=== PATIENT | female | born 1965 | race Caucasian/White ===

== ENCOUNTER 2016-06-23 19:20 | Inpatient (IN) | payer BC ==
[~2016-06-23] VITALS: Ht 160 cm; Wt 66.1 kg
[~2016-06-23 19:20] MED LIST: CHOL100027 PO; CYCL10TA6 PO; IBUP-103 PO; PANT40TA PO; PRED10TA PO; VITA1TAB4 PO; VITACAP26 PO
[2016-06-23] MEDS ORDERED: ONDANSETRON INJ 2 MG/ML 2 ML VIAL IV STA (19:42)
[2016-06-23] MEDS ORDERED: SODIUM CHLORIDE 0.9% 1000ML 1,000 ML IV STA ×2 (19:42)
[2016-06-23] MEDS ORDERED: MoRPHine SULFATE 10 MG/ML CARP/VIAL IV STA ×2 (19:42→20:21)
[2016-06-23] MEDS ORDERED: FAMOTIDINE 20MG/102 ML D5W IV STA (19:42)
[2016-06-23] MEDS ORDERED: MoRPHine SULFATE 4 MG/ML 1 ML CARP\\VIAL IV PRN (19:45)
--- NOTE | 2016-06-23 20:27 | DIAGNOSTIC IMAGING REPORT ---
CHEST ONE VIEW PORTABLE CLINICAL HISTORY: EPIGASTRIC PAIN NAUSEA COMPARISON STUDY: 08/04/2008 FINDINGS: The cardiac and mediastinal contours are normal. There is no evidence of focal pulmonary consolidation. There is no evidence of failure. No pleural effusions are visualized.[ No free air is visualized. IMPRESSION: No active disease in the chest. Electronically signed by: Az Florence M.D. 06/23/2016 8:26 PM Dictated Date/Time: 06/23/2016 8:25 PM
[2016-06-23] MEDS ORDERED: DIPH-437 PO (20:44)
[2016-06-23] MEDS ORDERED: HYDR-4313 PO (20:45)
[2016-06-23 21:44] LABS: URINE APPEARANCE CLEAR (CLEAR); URINE BILIRUBIN NEG (NEG); URINE COLOR YELLOW; URINE EPITHELIAL CELL AUTO 20-30 /lpf (0-5); URINE NITRITE NEG (NEG); URINE PH 8.5 (4.5-7.5); URINE SPECIFIC GRAVITY 1.007 (1.000-1.030); UROBILINOGEN NEG (NEG)
[2016-06-23 21:47] LABS: MANUAL MICROSCOPIC REQUIRED? NO; REVIEW REQ? NO
[2016-06-23 21:53] LABS: BASO % 0.1 %; BASO ABS # 0.01 K/uL (0-0.2); COMPLETE YES; EOS % 0.9 %; HEMATOCRIT 36.8 % (37-47); IG% 0.1 %; LYMPH % 15.9 %; LYMPH ABS # 1.39 K/uL (1.2-3.4); MEAN CELL VOLUME 89.5 fL (80-100); MEAN CORPUSCULAR HEMOGLOBIN 30.9 pg (25-34); MEAN CORPUSCULAR HGB CONC 34.5 g/dl (32-36); MEAN PLATELET VOLUME 10.4 fL (7.4-10.4); MONO % 9.7 %; NEUT % 73.3 %; PLATELET COUNT 257 K/uL (130-400); RED BLOOD COUNT 4.11 M/uL (4.2-5.4); WHITE BLOOD COUNT 8.76 K/uL (4.8-10.8)
[2016-06-23 21:59] LABS: PREG INTERNAL NEGATIVE QC NEG CLEAR BACKGROUND; PREG INTERNAL POSITIVE QC POS CONTROL LINE
[2016-06-23 22:00] LABS: ALT/SGPT 21 U/L (12-78); BLOOD UREA NITROGEN 11 mg/dl (7-18); BUN/CREATININE RATIO 16.9 (10-20); CALCIUM 8.5 mg/dl (8.5-10.1); CARBON DIOXIDE 19 mmol/L (21-32); CHLORIDE 113 mmol/L (98-107); CREATININE 0.62 mg/dl (0.60-1.20); GLUCOSE 99 mg/dl (70-99); PARTIAL THROMBOPLASTIN RATIO 1.1; POTASSIUM 3.7 mmol/L (3.5-5.1); PROTHROMBIN TIME (PATIENT) 10.7 SECONDS (9.0-12.0); SODIUM 142 mmol/L (136-145)
[2016-06-23] MEDS ORDERED: PANTOprazole INJ 40 MG in SYRINGE 0 ML IV ONE (22:00)
[2016-06-23 22:02] LABS: ALKALINE PHOSPHATASE 59 U/L (45-117); AST/SGOT 16 U/L (15-37)
[2016-06-23] MEDS ORDERED: HYDROmorphone INJ 1 MG/ML SYR IV STA (22:10)
[2016-06-23] MEDS ORDERED: OPTIRAY 320 IV PRN (22:15)
--- NOTE | 2016-06-23 23:08 | DIAGNOSTIC IMAGING REPORT ---
CT ABD/PELVIS IV CONTRAST ONLY CLINICAL HISTORY: Generalized abdominal pain COMPARISON STUDY: 10/23/2014 TECHNIQUE: Following the IV administration of 116 mL of Optiray-320, CT scan of the abdomen and pelvis was performed from the lung bases to the proximal femurs. Images are reviewed in the axial, sagittal, and coronal planes. IV contrast was administered without complication. CT DOSE: 260.40 mGy.cm FINDINGS: Lower chest: The heart is normal in size and configuration, without pericardial effusion. The lung bases and pleural spaces are clear. Liver: There is a stable 7 mm cyst within the lateral segment left hepatic lobe. Gallbladder: Unremarkable. Spleen: Normal in size and attenuation. Pancreas: Unremarkable. Adrenal glands: Unremarkable. Kidneys: There is symmetric renal cortical enhancement. The kidneys are normal in size without hydronephrosis. Bowel: There are no transition zones indicate bowel obstruction. There is nonspecific gastric wall thickening.. There is no evidence of acute diverticulitis. The appendix appears normal. Peritoneum: There is no intraperitoneal free air or abdominal ascites. Vasculature: The abdominal aorta is normal in course and caliber. Adenopathy: None. Pelvic viscera: The bladder, and pelvic viscera are unremarkable. Skeletal structures: No destructive osseous lesions are seen. IMPRESSION: 1. No evidence of bowel obstruction. No evidence of free air 2. Nonspecific gastric antral wall thickening 3. Normal appendix 4. No evidence of acute diverticulitis Electronically signed by: Az Florence M.D. 06/23/2016 11:07 PM Dictated Date/Time: 06/23/2016 11:01 PM
[2016-06-23] MEDS ORDERED: ALUMINUM/MAGNESIUM SUSP 30 ML UDC PO STA (23:13)
[2016-06-23] MEDS ORDERED: LIDOCAINE HCL 2% VISC SOLN 20 ML UDC PO STA (23:13)
--- NOTE | 2016-06-23 23:23 | EMERGENCY ROOM VISIT NOTE ---
History First contact with patient: 19:30 Chief Complaint: ABDOMINAL PAIN Stated Complaint: SEVERE STOMACH PAIN,NAUSEA History of Present Illness Patient is a 56-year-old white female who presents emergency department for evaluation of epigastric abdominal pain with associated nausea and vomiting 18 hours. Patient reports a history of peptic ulcer disease for which she was previously treated with Protonix. She discontinued this medication some time ago after insurance declined to cover it. Patient states that she developed sharp epigastric pain around 2 AM that woke her from sleep. She states it radiates through to her back. Initially she described it as feeling like someone was bringing her stomach like a washcloth. He later became more like "contractions." She reports associated nausea and vomited about half a dozen times throughout the day, her last was just prior to arrival. She did not take any medications due to the vomiting. She presently rates her pain 8/10. She denies noting any melena, hematochezia or hematemesis. Bowel movements have been loose of late. She tried sipping on 7-Up and some oral fluids. She notes slight radiation of the pain up into the midsternal area, only with the severe cramping. She denies any palpitations or shortness of breath. She has been using ibuprofen fairly regularly since March for a back injury. She is taking 600 mg 2-3 times per day as needed. She does report a history of EGD which diagnosed the ulcer disease previously. She admits to occasional alcohol consumption. She last had wine 2 days ago. She reports a diarrheal illness a couple of weeks ago which she treated with Imodium and Pepto-Bismol. Review of Systems Review of systems as per HPI. All other systems reviewed were negative. 10 systems reviewed. Past Medical/Surgical History Medical Problems: (1) Abdominal pain (2) Abdominal pain (3) Abdominal pain (4) Acute upper GI bleed (5) Fall due to slipping on ice or snow (6) Gastritis (7) HTN (hypertension) (8) Hx of ulcer disease (9) Hx of ulcer disease (10) Intractable abdominal pain (11) Left lumbar radiculopathy (12) Lumbar strain (13) PUD (peptic ulcer disease) (14) Stomach ulcer Surgical Problems: (1) H/O esophagogastroduodenoscopy (2) Hx of ovarian cystectomy (3) Hx of removal of thyroglossal duct cyst (4) S/P tonsillectomy and adenoidectomy (5) S/P unilateral salpingo-oophorectomy Electronic medical records are reviewed and summarized as above/below. See Problem List. Family History Hypertension Social History Smoking Status: Former Smoker Alcohol Use: none Drug Use: none Marital Status: Housing Status: lives with family Occupation Status: employed Current/Historical Medications Scheduled Acetaminophen/Diphenhydramine (Tylenol Pm), 1 TAB PO HS Scheduled PRN Acetaminophen/Hydrocodone (Hydrocodone/Acetaminophen 5-325 mg), 1 TAB PO BID PRN for Pain Ibuprofen Tab (Advil), 600 MG PO BID PRN for Pain Allergies Coded Allergies: No Known Allergies (Verified , 06/23/16) Physical Exam Vital Signs Date Time Temp Pulse Resp B/P Pulse Ox O2 Delivery O2 Flow Rate FiO2 06/23/16 21:46 69 17 129/75 98 Room Air 06/23/16 20:34 71 06/23/16 19:27 36.7 90 20 146/98 94 Room Air Physical Exam CONSTITUTIONAL: Patient is uncomfortable appearing 50-year-old white female who was awake and alert and in moderate distress due to her abdominal pain. EYES: Pupils equal, round, reactive to light and accommodation. EOMs intact without nystagmus. Sclera are anicteric. ENT: Tympanic membranes intact, with normal landmarks. External canals are clear. Oral and nasopharynx are clear. Mucous membranes are moist, no lesions , tongue and gums appear normal. NECK: No bruits auscultated. Supple without lymphadenopathy. No thyromegaly. No meningeal signs. Full active range of motion without discomfort. CARDIOVASCULAR: Regular rate and rhythm, with normal S1 and S2, no murmur or gallop or rub is heard. No carotid bruits auscultated. No JVD. Peripheral pulses easy to palpable. RESPIRATORY: Breath sounds equal and clear to auscultation without wheezes, rales, or rhonchi heard. Full and equal chest expansion without accessory muscle use or retractions. GI: Bowel sounds are present. Abdomen is soft and tender in the epigastric and the left upper quadrant with voluntary guarding. No organomegaly. She does not have significant discomfort in the right upper quadrant. MUSCULOSKELETAL: Full range of motion of extremities x 4 with good strength. No cyanosis, edema, joint tenderness or swelling. No deformity. INTEGUMENTARY: No lesions or rash, normal skin turgor. NEUROLOGICAL: Alert, oriented, and cooperative. Cranial nerves, sensation and strength grossly intact. Pupils round, equal, and react to light, EOMs are full. LYMPH: No lymphadenopathy. Medical Decision & Procedures ER Provider Diagnostic Interpretation: CHEST ONE VIEW PORTABLE CLINICAL HISTORY: EPIGASTRIC PAIN NAUSEA COMPARISON STUDY: 08/04/2008 FINDINGS: The cardiac and mediastinal contours are normal. There is no evidence of focal pulmonary consolidation. There is no evidence of failure. No pleural effusions are visualized.[ No free air is visualized. IMPRESSION: No active disease in the chest. CT ABD/PELVIS IV CONTRAST ONLY CLINICAL HISTORY: Generalized abdominal pain COMPARISON STUDY: 10/23/2014 TECHNIQUE: Following the IV administration of 116 mL of Optiray-320, CT scan of the abdomen and pelvis was performed from the lung bases to the proximal femurs. Images are reviewed in the axial, sagittal, and coronal planes. IV contrast was administered without complication. CT DOSE: 260.40 mGy.cm FINDINGS: Lower chest: The heart is normal in size and configuration, without pericardial effusion. The lung bases and pleural spaces are clear. Liver: There is a stable 7 mm cyst within the lateral segment left hepatic lobe. Gallbladder: Unremarkable. Spleen: Normal in size and attenuation. Pancreas: Unremarkable. Adrenal glands: Unremarkable. Kidneys: There is symmetric renal cortical enhancement. The kidneys are normal in size without hydronephrosis. Bowel: There are no transition zones indicate bowel obstruction. There is nonspecific gastric wall thickening.. There is no evidence of acute diverticulitis. The appendix appears normal. Peritoneum: There is no intraperitoneal free air or abdominal ascites. Vasculature: The abdominal aorta is normal in course and caliber. Adenopathy: None. Pelvic viscera: The bladder, and pelvic viscera are unremarkable. Skeletal structures: No destructive osseous lesions are seen. IMPRESSION: 1. No evidence of bowel obstruction. No evidence of free air 2. Nonspecific gastric antral wall thickening 3. Normal appendix 4. No evidence of acute diverticulitis Laboratory Results 06/23/16 21:30 Red Blood Count 4.11, Mean Corpuscular Volume 89.5, Mean Corpuscular Hemoglobin 30.9, Mean Corpuscular Hemoglobin Concent 34.5, Mean Platelet Volume 10.4, Neutrophils (%) (Auto) 73.3, Lymphocytes (%) (Auto) 15.9, Monocytes (%) (Auto) 9.7, Eosinophils (%) (Auto) 0.9, Basophils (%) (Auto) 0.1, Neutrophils # (Auto) 6.42, Lymphocytes # (Auto) 1.39, Monocytes # (Auto) 0.85, Eosinophils # (Auto) 0.08, Basophils # (Auto) 0.01 06/23/16 21:30 Test 06/23/16 20:08 06/23/16 21:30 Bedside Troponin I 0.000 ng/ml (0-0.045) White Blood Count 8.76 K/uL (4.8-10.8) Red Blood Count 4.11 M/uL (4.2-5.4) Hemoglobin 12.7 g/dL (12.0-16.0) Hematocrit 36.8 % (37-47) Mean Corpuscular Volume 89.5 fL (80-100) Mean Corpuscular Hemoglobin 30.9 pg (25-34) Mean Corpuscular Hemoglobin Concent 34.5 g/dl (32-36) Platelet Count 257 K/uL (130-400) Mean Platelet Volume 10.4 fL (7.4-10.4) Neutrophils (%) (Auto) 73.3 % Lymphocytes (%) (Auto) 15.9 % Monocytes (%) (Auto) 9.7 % Eosinophils (%) (Auto) 0.9 % Basophils (%) (Auto) 0.1 % Neutrophils # (Auto) 6.42 K/uL (1.4-6.5) Lymphocytes # (Auto) 1.39 K/uL (1.2-3.4) Monocytes # (Auto) 0.85 K/uL (0.11-0.59) Eosinophils # (Auto) 0.08 K/uL (0-0.5) Basophils # (Auto) 0.01 K/uL (0-0.2) RDW Standard Deviation 42.8 fL (36.4-46.3) RDW Coefficient of Variation 13.1 % (11.5-14.5) Immature Granulocyte % (Auto) 0.1 % Immature Granulocyte # (Auto) 0.01 K/uL (0.00-0.02) Prothrombin Time 10.7 SECONDS (9.0-12.0) Prothromb Time International Ratio 1.0 (0.9-1.1) Activated Partial Thromboplast Time 27.3 SECONDS (21.0-31.0) Partial Thromboplastin Ratio 1.1 Urine Color YELLOW Urine Appearance CLEAR (CLEAR) Urine pH 8.5 (4.5-7.5) Urine Specific Landers 1.007 (1.000-1.030) Urine Protein NEG (NEG) Urine Glucose (UA) NEG (NEG) Urine Ketones NEG (NEG) Urine Occult Blood NEG (NEG) Urine Nitrite NEG (NEG) Urine Bilirubin NEG (NEG) Urine Urobilinogen NEG (NEG) Urine Leukocyte Esterase SMALL (NEG) Urine WBC (Auto) 1-5 /hpf (0-5) Urine RBC (Auto) 0-4 /hpf (0-4) Urine Hyaline Casts (Auto) 0 /lpf (0-5) Urine Epithelial Cells (Auto) 20-30 /lpf (0-5) Urine Bacteria (Auto) NEG (NEG) Anion Gap 10.0 mmol/L (3-11) Est Creatinine Clear Calc Drug Dose 100.4 ml/min Estimated GFR () 121.0 Estimated GFR (Non- 104.4 BUN/Creatinine Ratio 16.9 (10-20) Calcium Level 8.5 mg/dl (8.5-10.1) Total Bilirubin 0.4 mg/dl (0.2-1) Direct Bilirubin < 0.1 mg/dl (0-0.2) Aspartate Amino Transf (AST/SGOT) 16 U/L (15-37) Alanine Aminotransferase (ALT/SGPT) 21 U/L (12-78) Alkaline Phosphatase 59 U/L (45-117) Total Protein 6.7 gm/dl (6.4-8.2) Albumin 3.8 gm/dl (3.4-5.0) Lipase 155 U/L (73-393) Human Chorionic Gonadotropin, Qual NEG (NEG) Medications Administered Medications (Trade) Dose Ordered Sig/Argelia Route Start Time Stop Time Status Last Admin Dose Admin Sodium Chloride 1,000 ml @ 999 mls/hr Q1H1M STAT IV 06/23/16 19:42 06/23/16 20:42 DC 06/23/16 20:01 999 MLS/HR Sodium Chloride (Nss 1000ml) 1,000 ml @ 250 mls/hr Q4H STAT IV 06/23/16 19:42 06/23/16 23:41 06/23/16 21:42 250 MLS/HR Ondansetron HCl (Zofran Inj) 4 mg NOW STAT IV 06/23/16 19:42 06/23/16 19:45 DC 06/23/16 20:01 4 MG Famotidine (Pepcid 20mg/100 ml) 20 mg ONE STAT IV 06/23/16 19:42 06/23/16 19:45 DC 06/23/16 20:01 20 MG Morphine Sulfate (MoRPHine SULFATE INJ) 6 mg NOW STAT IV 06/23/16 19:42 06/23/16 19:45 DC 06/23/16 20:01 6 MG Morphine Sulfate (MoRPHine SULFATE INJ) 4 mg Q1H PRN IV 06/23/16 19:45 07/07/16 19:44 06/23/16 21:42 4 MG Morphine Sulfate 8 mg 8 mg NOW STAT IV 06/23/16 20:21 06/23/16 20:22 DC 06/23/16 20:30 8 MG Pantoprazole Sodium/Syringe (Protonix Inj/ Syringe) 10 ml @ 5 mls/min NOW ONCE IV 06/23/16 22:00 06/23/16 22:01 DC 06/23/16 22:23 5 MLS/MIN Hydromorphone HCl (Dilaudid Inj) 1 mg NOW STAT IV 06/23/16 22:10 06/23/16 22:11 DC 06/23/16 22:24 1 MG ECG Indication: abdominal pain Rate (beats per minute): 66 Rhythm: normal sinus Findings: no acute ischemic change, no ectopy Comparison ECG Date: no prior available ED Course Patient was seen and examined as above. Old records were reviewed. IV access was obtained and she was hydrated with normal saline solution. She was initially medicated with morphine 6 mg IV, Pepcid 20 mg IV and Zofran 4 mg IV. She later received and additional morphine 8 mg IV 1, 4 mg IV 1, then was switched to Dilaudid 1 mg IV. She was also given Protonix 40 mg IV and a GI cocktail. The patient presents emergency department for evaluation of epigastric abdominal pain, nausea and vomiting. She has a long-standing history of peptic ulcer disease and a remote history of a GI bleed. She has been off of her PPI for almost 6 months, and has been using NSAIDs regularly due to a back injury. CBC with differential, coags, BMP, LFTs, lipase and [id number] troponin were her formed. Stat portable chest x-ray was obtained and was unremarkable. There is no evidence for free air. Laboratory studies did not demonstrate any leukocytosis. H&H is 12.7 and 36.8. Coags are unremarkable. Electrolytes did not demonstrate any correctable abnormality. Renal function is normal. Liver functions and lipase are not elevated. [id number] troponin is not indicative of ischemic process. Urinalysis does not indicate infection. EKG was unremarkable. CT scan of the abdomen and pelvis showed nonspecific gastric antral wall thickening, no evidence for perforation, bowel obstruction, free air or acute diverticulitis. All laboratory and diagnostic imaging studies were reviewed with attending physician, and discussed with the patient and her at length. She continues to have persistent abdominal pain, which I suspect is related to her peptic ulcer disease. H&H is stable, she does not report hematemesis, melena or hematochezia to indicate a GI bleed at this time. She has required multiple doses of IV pain medication and that is still uncomfortable. Patient was reviewed with the manager internal, and discussed with the [facility] for further care and evaluation. Differential diagnosis includes gastritis, Rosa-Ledesma tear, PUD, GERD, esophageal rupture/perforation, Boerhaave's syndrome, esophagitis, acute pancreatitis, acute cholecystitis, biliary colic, cholelithiasis, ascending cholangitis, bowel obstruction, perforation, ACS, AMI, among others. Medical Decision See ED Course. Impression Primary Impression: Intractable abdominal pain Additional Impression: Hx of ulcer disease Departure Information Patient Instructions [facility] Problem Qualifiers
[2016-06-24] MEDS ORDERED: PANTOprazole INJ 80 MG in DEXTROSE 5% 100ML IV STA (00:14)
[2016-06-24] MEDS ORDERED: ACETAMINOPHEN IV 100 ML IV PRN (00:15)
[2016-06-24] MEDS ORDERED: PANTOprazole INJ 40 MG in SYRINGE 0 ML IV STA (00:18)
[2016-06-24] MEDS ORDERED: SODIUM CHLORIDE 0.9% 1000ML 1,000 ML IV SCH (00:30)
[2016-06-24] MEDS ORDERED: MoRPHine SULFATE 2 MG/ML CARP IV PRN (00:30)
[2016-06-24] MEDS ORDERED: MoRPHine SULFATE 4 MG/ML 1 ML CARP\\VIAL IV PRN (00:30)
[2016-06-24] MEDS: ONDANSETRON INJ 2 MG/ML 2 ML VIAL IV PRN ×2 (00:42→23:12)
[2016-06-24] MEDS: MoRPHine SULFATE 4 MG/ML 1 ML CARP\\VIAL IV PRN ×4 (00:43→23:10)
[2016-06-24] MEDS ORDERED: DiphenhydrAMINE HCL 50 MG/ML VIAL ONE (01:03)
[2016-06-24] MEDS ORDERED: HYDROmorphone INJ 0.5 MG/0.5 ML SYR ONE (01:04)
[2016-06-24] MEDS ORDERED: HYDROmorphone INJ 1 MG/ML SYR IV PRN (01:15)
[2016-06-24] MEDS: PANTOprazole INJ 40 MG in DEXTROSE 5% 100ML IV SCH ×5 (01:19→20:39)
[2016-06-24] MEDS: MoRPHine SULFATE 2 MG/ML CARP IV PRN ×2 (02:42→06:34)
[2016-06-24 02:43] VITALS: BP 136/90; PULSE 70; TEMP 36.4; O2SAT 98; Ht 160 cm; Wt 66.1 kg
--- NOTE | 2016-06-24 02:43 | History and Physical ---
History & Physical Date & Time of Service: Jun 24, 2016 at 02:30 Chief Complaint: Hx Of Ulcer Disease, Intractable Abd Pain Primary Care Physician: No Doctor, Assigned History of Present Illness Source: patient This is a 50 yo f that is presenting to us with N&V and epigastric pain. She states that around 0200 on 06/23/16 the patient suddenly had contraction like epigastric pain that radiated to the back. This was accompanied by N&V. The pain has been constant since 020 and she has been unable to eat or drink. It is currently an 8-02/22 pain. She notes that she has a history of Gi ulcer that she was taking protonix daily for. approx 6 months ago the patient's insurance stated they would not cover the cost of it until she had another EGD. She has not used any PPI for 6 months. Her previous EGD was done by [facility]. She has been taking 1200 mg of ibuprofen daily for lower back pain for her arthritis for > 6 months. Denies any melena, blood in stool or blood in vomitus. She did have blood in stool with previous ulcer. Past Medical/Surgical History Medical Problems: (1) Abdominal pain Status: Resolved (2) Abdominal pain Status: Resolved (3) Abdominal pain Status: Resolved (4) Acute upper GI bleed Status: Resolved (5) Fall due to slipping on ice or snow Status: Resolved (6) Gastritis Status: Resolved (7) HTN (hypertension) Status: Resolved (8) Hx of ulcer disease Status: Chronic (9) Hx of ulcer disease Status: Resolved (10) Intractable abdominal pain Status: Resolved (11) Left lumbar radiculopathy Status: Resolved (12) Lumbar strain Status: Resolved (13) PUD (peptic ulcer disease) Status: Chronic (14) Stomach ulcer Status: Chronic Surgical Problems: (1) H/O esophagogastroduodenoscopy Status: Resolved (2) Hx of ovarian cystectomy Status: Resolved (3) Hx of removal of thyroglossal duct cyst Status: Resolved (4) S/P tonsillectomy and adenoidectomy Status: Resolved (5) S/P unilateral salpingo-oophorectomy Status: Resolved Family History Hypertension Social History Smoking Status: Former Smoker Smokeless Tobacco Use: No Alcohol Use: occasionally Drug Use: none Marital Status: Housing status: lives with family Occupational Status: employed Immunizations History of Influenza Vaccine: Yes History of Tetanus Vaccine?: Yes Tetanus Immunization Date: May 14, 2012 History of Pneumococcal: No Pneumococcal Date: Jul 15, 2007 History of Hepatitis B Vaccine: Yes Hepatitis Immunization Date: Jan 13, 2006 Multi-Drug Resistant Organisms History of MDRO: No Allergies Coded Allergies: No Known Allergies (Verified , 06/23/16) Home Medications Scheduled Acetaminophen/Diphenhydramine (Tylenol Pm), 1 TAB PO HS Scheduled PRN Acetaminophen/Hydrocodone (Hydrocodone/Acetaminophen 5-325 mg), 1 TAB PO BID PRN for Pain Ibuprofen Tab (Advil), 600 MG PO BID PRN for Pain Review of Systems Constitutional: No fever Eyes: No worsening of vision ENT: No hearing loss Respiratory: No cough, No dyspnea at rest, No dyspnea on exertion, No shortness of breath, No sputum, No wheezing Cardiovascular: No chest pain Abdomen: + nausea, + pain, + vomiting, No GI bleeding, No constipation, No diarrhea Musculoskeletal: No joint pain, No muscle pain Neurologic: No balance problems, No memory loss, No numbness/tingling, No weakness Psychiatric: No anxiety, No depression symptoms Endocrine: No fatigue Physical Exam Vital Signs Date Time Temp Pulse Resp B/P Pulse Ox O2 Delivery O2 Flow Rate FiO2 06/24/16 01:52 61 16 109/61 93 Room Air 06/24/16 01:17 74 16 152/95 99 Room Air 06/23/16 21:46 69 17 129/75 98 Room Air 06/23/16 20:34 71 06/23/16 19:27 36.7 90 20 146/98 94 Room Air General Appearance: WD/WN, no apparent distress Head: normocephalic, atraumatic Eyes: normal inspection ENT: normal ENT inspection Neck: supple Respiratory/Chest: lungs clear, normal breath sounds, no respiratory distress, no accessory muscle use Cardiovascular: regular rate, rhythm, no murmur Abdomen/GI: normal bowel sounds, soft, + tenderness (epigastric, no rebound) Back: normal inspection Extremities/Musculoskelatal: normal inspection, no calf tenderness, no pedal edema Neurologic/Psych: alert, normal mood/affect, oriented x 3 Skin: normal color, warm/dry, no rash Lymphatic: no adenopathy Diagnostics Laboratory Results Results Past 24 Hours Test 06/23/16 20:08 06/23/16 21:30 Range/Units Bedside Troponin I 0.000 0-0.045 ng/ml White Blood Count 8.76 4.8-10.8 K/uL Red Blood Count 4.11 4.2-5.4 M/uL Hemoglobin 12.7 12.0-16.0 g/dL Hematocrit 36.8 37-47 % Mean Corpuscular Volume 89.5 80-100 fL Mean Corpuscular Hemoglobin 30.9 25-34 pg Mean Corpuscular Hemoglobin Concent 34.5 32-36 g/dl Platelet Count 257 130-400 K/uL Mean Platelet Volume 10.4 7.4-10.4 fL Neutrophils (%) (Auto) 73.3 % Lymphocytes (%) (Auto) 15.9 % Monocytes (%) (Auto) 9.7 % Eosinophils (%) (Auto) 0.9 % Basophils (%) (Auto) 0.1 % Neutrophils # (Auto) 6.42 1.4-6.5 K/uL Lymphocytes # (Auto) 1.39 1.2-3.4 K/uL Monocytes # (Auto) 0.85 0.11-0.59 K/uL Eosinophils # (Auto) 0.08 0-0.5 K/uL Basophils # (Auto) 0.01 0-0.2 K/uL RDW Standard Deviation 42.8 36.4-46.3 fL RDW Coefficient of Variation 13.1 11.5-14.5 % Immature Granulocyte % (Auto) 0.1 % Immature Granulocyte # (Auto) 0.01 0.00-0.02 K/uL Prothrombin Time 10.7 9.0-12.0 SECONDS Prothromb Time International Ratio 1.0 0.9-1.1 Activated Partial Thromboplast Time 27.3 21.0-31.0 SECONDS Partial Thromboplastin Ratio 1.1 Urine Color YELLOW Urine Appearance CLEAR CLEAR Urine pH 8.5 4.5-7.5 Urine Specific [place] 1.007 1.000-1.030 Urine Protein NEG NEG Urine Glucose (UA) NEG NEG Urine Ketones NEG NEG Urine Occult Blood NEG NEG Urine Nitrite NEG NEG Urine Bilirubin NEG NEG Urine Urobilinogen NEG NEG Urine Leukocyte Esterase SMALL NEG Urine WBC (Auto) 1-5 0-5 /hpf Urine RBC (Auto) 0-4 0-4 /hpf Urine Hyaline Casts (Auto) 0 0-5 /lpf Urine Epithelial Cells (Auto) 20-30 0-5 /lpf Urine Bacteria (Auto) NEG NEG Sodium Level 142 136-145 mmol/L Potassium Level 3.7 3.5-5.1 mmol/L Chloride Level 113 98-107 mmol/L Carbon Dioxide Level 19 21-32 mmol/L Anion Gap 10.0 3-11 mmol/L Blood Urea Nitrogen 11 7-18 mg/dl Creatinine 0.62 0.60-1.20 mg/dl Est Creatinine Clear Calc Drug Dose 100.4 ml/min Estimated GFR () 121.0 Estimated GFR (Non- 104.4 BUN/Creatinine Ratio 16.9 10-20 Random Glucose 99 70-99 mg/dl Calcium Level 8.5 8.5-10.1 mg/dl Total Bilirubin 0.4 0.2-1 mg/dl Direct Bilirubin < 0.1 0-0.2 mg/dl Aspartate Amino Transf (AST/SGOT) 16 15-37 U/L Alanine Aminotransferase (ALT/SGPT) 21 12-78 U/L Alkaline Phosphatase 59 45-117 U/L Total Protein 6.7 6.4-8.2 gm/dl Albumin 3.8 3.4-5.0 gm/dl Lipase 155 73-393 U/L Human Chorionic Gonadotropin, Qual NEG NEG Diagnostic Radiology CT ABD/PELVIS IV CONTRAST ONLY CLINICAL HISTORY: Generalized abdominal pain COMPARISON STUDY: 10/23/2014 TECHNIQUE: Following the IV administration of 116 mL of Optiray-320, CT scan of the abdomen and pelvis was performed from the lung bases to the proximal femurs. Images are reviewed in the axial, sagittal, and coronal planes. IV contrast was administered without complication. CT DOSE: 260.40 mGy.cm FINDINGS: Lower chest: The heart is normal in size and configuration, without pericardial effusion. The lung bases and pleural spaces are clear. Liver: There is a stable 7 mm cyst within the lateral segment left hepatic lobe. Gallbladder: Unremarkable. Spleen: Normal in size and attenuation. Pancreas: Unremarkable. Adrenal glands: Unremarkable. Kidneys: There is symmetric renal cortical enhancement. The kidneys are normal in size without hydronephrosis. Bowel: There are no transition zones indicate bowel obstruction. There is nonspecific gastric wall thickening.. There is no evidence of acute diverticulitis. The appendix appears normal. Peritoneum: There is no intraperitoneal free air or abdominal ascites. Vasculature: The abdominal aorta is normal in course and caliber. Adenopathy: None. Pelvic viscera: The bladder, and pelvic viscera are unremarkable. Skeletal structures: No destructive osseous lesions are seen. IMPRESSION: 1. No evidence of bowel obstruction. No evidence of free air 2. Nonspecific gastric antral wall thickening 3. Normal appendix 4. No evidence of acute diverticulitis CHEST ONE VIEW PORTABLE CLINICAL HISTORY: EPIGASTRIC PAIN NAUSEA COMPARISON STUDY: 08/04/2008 FINDINGS: The cardiac and mediastinal contours are normal. There is no evidence of focal pulmonary consolidation. There is no evidence of failure. No pleural effusions are visualized.[ No free air is visualized. IMPRESSION: No active disease in the chest. EKG bpm 66 Qtc 452 NSR no ischemic changes no ectopy Impression Assessment and Plan This is a 50 yo f that is presenting to us with acute epigastric pain and n&V. this is concerning for a recurrent ulcer because of no PPI and chronic NSAID use Epigastric pain possibly secondary to gastric ulcer vs GERD - NPO - repeat CMP in the am - q6 HH to monitor for anemia however not active bleeding - hemm occult - consult GI - morphine for pain control - protonix bid iv - NSS IVF Chronic lower back pain secondary to arthritis K Pad - ibuprofen held DVT prophylaxis - SCD FULL CODE Level of Care Med/Surg Resuscitation Status FULL RESUSCITATION VTE Prophylaxis VTE Risk Assessment Done? Y/N: Yes Risk Level: Moderate Given or contraindicated: SCD's Social Service Consult None Apply Note Total Time: Critical Care 30 - 74 minutes Assessment and Plan Attending Addendum: I have physically seen and examined this patient, have directed their medical care, have supervised the medical residents activities, and agree with the H&P as noted above, with the following changes: None The patient is awake, well-developed and adequately nourished, alert and oriented 3, normocephalic and atraumatic, lying in bed and in moderately severe distress secondary to abdominal pain. HEENT--PERRL, EOMI, mucous membranes and oropharynx dry. Neck--supple, no JVD or bruits, thyroid normal, trachea midline, no adenopathy. Heart--normal S1 and S2, no extra beats, no murmurs, rubs or gallops. Lungs--clear bilaterally, no respiratory distress, no accessory muscle use. Abdomen--normal bowel sounds and soft, moderately severe epigastric pain, no hernias or masses, no organomegaly. Extremities--no cyanosis, clubbing or edema. There are good distal pulses b/l. Dermatologic--normal skin turgor, normal color, warm and dry, no abnormal lymph nodes, no rash. Neurologic--cranial nerves II through XII grossly intact, motor and sensory examination normal. Rheumatologic--normal range of motion, nontender, muscles and joints. Psychiatric--normal affect. Assessment and Plan: Severe Epigastric Pain/history of peptic ulcer disease/current use of ibuprofen up to 1200 mg daily for at least the past 6 months/off Protonix due to noninsurance coverage--the patient will be admitted to the medical floor. She' ll be kept nothing by mouth. Place on normal saline potassium chloride 20 mEq 100 ML's per hour, and Protonix bolus followed by continuous infusion. We'll consult her condenser cleaner Dr. Jade. Chronic low back pain--order a K pad for now, and morphine sulfate 2-4 mg IV every 2 hours when necessary.
[2016-06-24] MEDS: NSS + 20MEQ KCL 1000ML 1,000 ML IV SCH ×3 (03:00→22:18)
[2016-06-24 07:13] VITALS: BP 106/71; PULSE 64; TEMP 36.7; O2SAT 96
[2016-06-24] MEDS: HYDROmorphone INJ 1 MG/ML SYR IV PRN ×4 (07:48→22:18)
--- NOTE | 2016-06-24 07:54 | Hospitalist Progress Note ---
Hospitalist Progress Note Date of Service Jun 24, 2016. (Kaya Basilio ., NAHEEDC) Subjective Pt evaluation today including: conversation w/ patient, physical exam, chart review, lab review, review of studies, review of inpatient medication list Voiding: no voiding problems, no incontinence Patient states she is not feeling well. Mild relief with IV pain medication. Hx of PUD- per patient, symptoms seem exactly like last episode of PUD. Patient denies any bloody emesis (but unsure as last time she vomited was on 06/23 after she drank something red). Denies any bloody stools or dark tarry stools, although no recent bowel movements in the last couple of days. (Kaya Basilio ., NAHEEDC) Medications Current Inpatient Medications Medications (Trade) Dose Ordered Sig/[place] Route Start Time Stop Time Status Last Admin Dose Admin Ioversol 100 ml 100 ml UD PRN IV 06/23/16 22:15 06/27/16 22:14 Acetaminophen 100 ml @ 400 mls/hr Q8H PRN IV 06/24/16 00:15 07/24/16 00:14 06/24/16 00:43 400 MLS/HR Potassium Chloride/Sodium Chloride (Nss + 20meq KCl 1000ml) 1,000 ml @ 100 mls/hr Q10H IV 06/24/16 03:00 07/24/16 02:59 06/24/16 03:00 100 MLS/HR Morphine Sulfate (MoRPHine SULFATE INJ) 2 mg Q2H PRN IV 06/24/16 00:15 07/08/16 00:14 06/24/16 06:34 2 MG Morphine Sulfate 4 mg 4 mg Q2H PRN IV 06/24/16 00:15 07/08/16 00:14 06/24/16 09:58 4 MG Pantoprazole Sodium/Dextrose (Protonix Inj/D5 100ml) 100 ml @ 20 mls/hr Q5H IV 06/24/16 00:15 07/24/16 00:14 06/24/16 10:13 20 MLS/HR Ondansetron HCl (Zofran Inj) 4 mg Q6H PRN IV 06/24/16 00:30 07/24/16 00:29 06/24/16 00:42 4 MG Hydromorphone HCl (Dilaudid Inj) 0.5 mg Q2H PRN IV 06/24/16 01:15 07/08/16 01:14 06/24/16 05:12 0.5 MG Hydromorphone HCl (Dilaudid Inj) 1 mg Q2H PRN IV 06/24/16 01:15 07/08/16 01:14 06/24/16 07:48 1 MG Diphenhydramine HCl (Benadryl Inj) 50 mg Q4H PRN IV 06/24/16 01:15 07/24/16 01:14 (Kaya Basilio PA-C) Objective Vital Signs Date Time Temp Pulse Resp B/P Pulse Ox O2 Delivery O2 Flow Rate FiO2 06/24/16 07:13 36.7 64 18 106/71 96 Room Air 06/24/16 02:43 36.4 70 18 136/90 98 Room Air 06/24/16 01:52 61 16 109/61 93 Room Air 06/24/16 01:17 74 16 152/95 99 Room Air 06/23/16 21:46 69 17 129/75 98 Room Air 06/23/16 20:34 71 06/23/16 19:27 36.7 90 20 146/98 94 Room Air (Kaya Basilio PA-C) Physical Exam General Appearance: + mild distress Eyes: normal inspection, PERRL ENT: hearing grossly normal Neck: supple Respiratory/Chest: lungs clear, no respiratory distress, no accessory muscle use Cardiovascular: regular rate, rhythm Abdomen: normal bowel sounds, soft, + guarding, + tenderness (severe tenderness of epigastric region to light palpation ) Extremities: no pedal edema, no calf tenderness Neurologic/Psychiatric: alert, normal mood/affect, oriented x 3 Skin: normal color, warm/dry, no rash (Kaya Basilio ., PA-C) Laboratory Results Last 24 Hours Test 06/23/16 20:08 06/23/16 21:30 Bedside Troponin I 0.000 ng/ml White Blood Count 8.76 K/uL Red Blood Count 4.11 M/uL Hemoglobin 12.7 g/dL Hematocrit 36.8 % Mean Corpuscular Volume 89.5 fL Mean Corpuscular Hemoglobin 30.9 pg Mean Corpuscular Hemoglobin Concent 34.5 g/dl Platelet Count 257 K/uL Mean Platelet Volume 10.4 fL Neutrophils (%) (Auto) 73.3 % Lymphocytes (%) (Auto) 15.9 % Monocytes (%) (Auto) 9.7 % Eosinophils (%) (Auto) 0.9 % Basophils (%) (Auto) 0.1 % Neutrophils # (Auto) 6.42 K/uL Lymphocytes # (Auto) 1.39 K/uL Monocytes # (Auto) 0.85 K/uL Eosinophils # (Auto) 0.08 K/uL Basophils # (Auto) 0.01 K/uL RDW Standard Deviation 42.8 fL RDW Coefficient of Variation 13.1 % Immature Granulocyte % (Auto) 0.1 % Immature Granulocyte # (Auto) 0.01 K/uL Prothrombin Time 10.7 SECONDS Prothromb Time International Ratio 1.0 Activated Partial Thromboplast Time 27.3 SECONDS Partial Thromboplastin Ratio 1.1 Urine Color YELLOW Urine Appearance CLEAR Urine pH 8.5 Urine Specific [place] 1.007 Urine Protein NEG Urine Glucose (UA) NEG Urine Ketones NEG Urine Occult Blood NEG Urine Nitrite NEG Urine Bilirubin NEG Urine Urobilinogen NEG Urine Leukocyte Esterase SMALL Urine WBC (Auto) 1-5 /hpf Urine RBC (Auto) 0-4 /hpf Urine Hyaline Casts (Auto) 0 /lpf Urine Epithelial Cells (Auto) 20-30 /lpf Urine Bacteria (Auto) NEG Sodium Level 142 mmol/L Potassium Level 3.7 mmol/L Chloride Level 113 mmol/L Carbon Dioxide Level 19 mmol/L Anion Gap 10.0 mmol/L Blood Urea Nitrogen 11 mg/dl Creatinine 0.62 mg/dl Est Creatinine Clear Calc Drug Dose 100.4 ml/min Estimated GFR () 121.0 Estimated GFR (Non- 104.4 BUN/Creatinine Ratio 16.9 Random Glucose 99 mg/dl Calcium Level 8.5 mg/dl Total Bilirubin 0.4 mg/dl Direct Bilirubin < 0.1 mg/dl Aspartate Amino Transf (AST/SGOT) 16 U/L Alanine Aminotransferase (ALT/SGPT) 21 U/L Alkaline Phosphatase 59 U/L Total Protein 6.7 gm/dl Albumin 3.8 gm/dl Lipase 155 U/L Human Chorionic Gonadotropin, Qual NEG (Kaya Basilio, HOMER) Assessment and Plan This is a 50 yo f that is presenting to us with acute epigastric pain and n&V, with hx of PUD- concerning for a recurrent ulcer because of no PPI x6 months and chronic NSAID use. Epigastric pain due gastric ulcer: - Admit med/surg - NPO, advance diet as tolerated - Hydrate with IV NSS + 20 mEq KCL @ 100 ml/hr - IV Protonix--> convert to Protonix BID PO when tolerating or intake - Pain management with IV Dilaudid PRN or IV Morphine PRN - CXR- No active disease in the chest - Abdominal CT- No evidence of bowel obstruction. No evidence of free air. Nonspecific gastric antral wall thickening. Normal appendix. No evidence of acute diverticulitis - Check hem occult - U/A negative - Follow CBC and CMP- hgb stable - Consult GI, appreciate recommendations -- EGD on 06/24- gastric ulcer, erosive antral gastritis -- Recommend Protonix BID, f/u EGD in 2 months, avoid NSAIDs Chronic lower back pain secondary to arthritis - K Pad + IV Dilaudid PRN or IV Morphine PRN - Hold Ibuprofen DVT prophylaxis: - No chemical therapy due to ?PUD - SCDs Code Status: LEVEL I, FULL Dispo: - Discharge to home once medically stable. (Kaya Basilio ., PA-C) i personally examined pt and verified all rojas points w Leroy Basilio PAC ongoing epigastric pain - pt seen after EGD, d/w GI, pictures from scope reviewed. notes takes ibuprofen for back pain - back pain is mostly tightness/pressure in low back in the back itself. she does have radiation down legs, but this doesn' t always seem to be the case - difficult to tell how often this happens as it seems to be ?frequent but random vs ?when her pain that's in the low back itself is way worse? difficult HPI on this due to severity of current pain w PUD. she notes though that definitely a big part of the pain is pain in the low back itself far more than the pain down the legs. notes that years ago she saw someone in the [facility] area that did some sort of needling injection treatment "that they do for athletes" - describing "60 injections" a number of times - and relates that this treatment got her better relief than anything else. notes NSAIDs don't even help all that much. extensive discussion on back pain vitals noted, appearing in pain from stomach, curled up and holding stomach. a/p - PUD - due to NSAIDs. counselled on cause-effect of NSAIDs and PUD - strict avoidance necessary. continue protonix BID low back pain - right now will hold on MSK exam due to chronicity of back pain and acuity of stomach pain - once stomach feeling better will examine back in more detail - but d/w pt both by the nature of her pain and the fact that she responded well to what sounded like an intensive trigger point injection regimen - likely is heavy biomechanical component. do suspect that L4 disc lesion plays a role but mostly in leg radicular sx, and possibly if DJD enough structural disease to be the nidus for the muscular pain - but would anticipate improvement with regimen geared at affecting normalization of Lspine (and probably pelvis) muscle tone. she expressed understanding of this and agreement in this as a working dx. will examine in more detail when her stomach is feeling better - then if (+) would likely have see DC for soft tissue focused manipulative medicine; ongoing w dr spencer for disc lesion pain as needed, but work heavily on improving muscular component. (Clayton Brunson D.O.)
[2016-06-24 08:26] LABS: HEMATOCRIT 34.4 % (37-47); MEAN CELL VOLUME 90.3 fL (80-100); MEAN CORPUSCULAR HGB CONC 34.3 g/dl (32-36); MEAN PLATELET VOLUME 10.3 fL (7.4-10.4); PLATELET COUNT 227 K/uL (130-400); RED BLOOD COUNT 3.81 M/uL (4.2-5.4); WHITE BLOOD COUNT 5.92 K/uL (4.8-10.8)
[2016-06-24 08:56] LABS: ALT/SGPT 18 U/L (12-78); BLOOD UREA NITROGEN 8 mg/dl (7-18); BUN/CREATININE RATIO 10.4 (10-20); CALCIUM 8.5 mg/dl (8.5-10.1); CARBON DIOXIDE 21 mmol/L (21-32); CHLORIDE 110 mmol/L (98-107); CREATININE 0.72 mg/dl (0.60-1.20); GLUCOSE 88 mg/dl (70-99); POTASSIUM 3.8 mmol/L (3.5-5.1); SODIUM 141 mmol/L (136-145)
[2016-06-24 09:00] LABS: ALB/GLOB RATIO 1.3 (0.9-2); ALKALINE PHOSPHATASE 53 U/L (45-117); AST/SGOT 14 U/L (15-37)
[2016-06-24] MEDS ORDERED: LORAZEPAM INJ 1 MG in SYRINGE 0.5 ML IV ONE (10:00)
--- NOTE | 2016-06-24 11:31 | Gastrointestinal Consultation ---
Gastrointestinal Consultation Date of Consultation: Jun 24, 2016 Attending Physician: Dr. Rouse, consult from Dr. Lopez Consulting Physician: Dr. Hernandez Reason for Consultation: history of ulcer, epigastric pain History of Present Illness Patient is a 50 year old female patient of Dr. Winkler. She carries a hx of abdominal pain, Peptic ulcer disease, chronic back pain, HTN. Dr. Gramajo was consulted for epigastric pain and hx of PUD. He has asked that we provide GI care as we have provided endoscopy in the past. Ms. Maza tells me that, at baseline, she has mild cramping diffuse abdominal pain, and sometimes has diarrhea with this. Also, at baseline she has reflux, felt as burning in the epigastric area as well as chest burning and feeling like "I can't swallow." These reflux symptoms occur daily, with severe symptoms a few times/week. For her heartburn, she takes Omeprazole 20mg daily, occasionally. She was previously on Protonix but this was denied by insurance about 6 months ago. In addition to these chronic GI issues, she was awakened from sleep around 2 AM on 06/23 with severe epigastric pain that is "throbbing" at baseline and in additional has frequent "waves" of cramping, knife like twisting pain that comes over her for about 10 - 20seconds before returning to the "throbbing" baseline. With this pain she had nausea and vomiting, occurring atleast hourly for atleast 12 hrs, with dry heaves as well. She has not have hematemesis. At baseline she tends toward diarrhea and typically more diarrhea on days that her abdominal pain is worse. Since this pain started she has not had a BM. Her most recent BM was a small formed BM early yesterday morning. It was brown, no melena or hematochezia. She has been on Ibuprofen 600mg 1-2 times daily since last March for back and dental pain. On arrival, CT with IV contrast was normal. CBC, CMP, lipase and INR were w/o any significant abnormalities test was (-). The patient is seen and examined while she is in bed. She is writhing in pain, unable to sit or lay still c/o twisting cramping like waves of pain over her epigastric area. She tells me that she knows her body and that she knows that she has an ulcer. A review of [facility] OP records shows that she has had 7 EGDs with our service from 2008 through her most recent EGD in 2013. Findings have included gastric ulcer (2008 and 2012) esophagitis 07/31/13. She also had colonoscopy in 2008 which was normal. Past Medical/Surgical History Medical Problems: (1) Hx of ulcer disease Status: Chronic (2) PUD (peptic ulcer disease) Status: Chronic (3) Stomach ulcer Status: Chronic Past Medical History: 1. HTN 2. Chronic abdominal pain 3. Chronic back pain 4. Peptic ulcer disease and esophagitis. Past Surgical History: 1. Ectopic surgery 2. Childhood Tonsillectomy and adenoidectomy 3. Multiple EGDs see HPI 4. Colonoscopy 2008: normal. Family History Hypertension Social History Smoking Status: Never Smoker Alcohol Use: none Drug Use: none Marital Status: Housing Status: lives with family Occupation Status: employed Allergies Coded Allergies: No Known Allergies (Verified , 06/23/16) Current Medications Home Meds and Scripts Medications Dose Route/Sig Max Daily Dose Days Date Category Hydrocodone/Acetaminophen 5-325 mg (Acetaminophen/Hydrocodone Bitart) 1 Ea Tab 1 Tab PO BID PRN 06/23/16 Reported Tylenol Pm (Acetaminophen/Diphenhydramine HCl) 500 Mg/25 Mg Tab 1 Tab PO HS 06/23/16 Reported Advil (Ibuprofen) 200 Mg Tab 600 Mg PO BID PRN 10/23/14 Reported Review of Systems Constitutional: + weakness, No chills, No fever, No sweats, No weight loss Eyes: No eye pain, No redness ENT: No pain on swallowing, No sore throat, No trouble swallowing Respiratory: No cough, No dyspnea on exertion, No shortness of breath, No wheezing Cardiac: No chest pain, No edema, No palpitations Abdomen: + see HPI Neuro: No balance problems, No memory loss, No numbness/tingling, No vertigo, No weakness Psych: No anxiety, No depression symptoms, No insomnia Heme: No abnormal bleeding/bruising, No night sweats Endo: No excessive thirst, No excessive urination Skin: No itch, No jaundice, No new/changing skin lesions, No rash Physical Exam Date Time Temp Pulse Resp B/P Pulse Ox O2 Delivery O2 Flow Rate FiO2 06/24/16 08:00 Room Air 06/24/16 07:13 36.7 64 18 106/71 96 Room Air 06/24/16 06:51 Room Air 06/24/16 02:43 36.4 70 18 136/90 98 Room Air 06/24/16 01:52 61 16 109/61 93 Room Air 06/24/16 01:17 74 16 152/95 99 Room Air 06/23/16 21:46 69 17 129/75 98 Room Air 06/23/16 20:34 71 06/23/16 19:27 36.7 90 20 146/98 94 Room Air General Appearance: no apparent distress Eyes: normal inspection, EOMI Neck: supple, no adenopathy, thyroid normal Respiratory/Chest: chest non-tender, lungs clear, normal breath sounds, no accessory muscle use Cardiovascular: regular rate, rhythm, no JVD, no murmur Abdomen: soft, no organomegaly, + abnormal bowel sounds (hypoactive), + tenderness (exquisitely tender over the entire abdomen, worse in the epigastric area) Extremities: normal inspection, no pedal edema, normal capillary refill Neurologic/Psych: alert, normal mood/affect, oriented x 3 Skin: normal color, no jaundice, warm/dry, no rash Laboratory Results Last 24 Hours Test 06/23/16 20:08 06/23/16 21:30 06/24/16 08:18 Bedside Troponin I 0.000 ng/ml White Blood Count 8.76 K/uL 5.92 K/uL Red Blood Count 4.11 M/uL 3.81 M/uL Hemoglobin 12.7 g/dL 11.8 g/dL Hematocrit 36.8 % 34.4 % Mean Corpuscular Volume 89.5 fL 90.3 fL Mean Corpuscular Hemoglobin 30.9 pg 31.0 pg Mean Corpuscular Hemoglobin Concent 34.5 g/dl 34.3 g/dl Platelet Count 257 K/uL 227 K/uL Mean Platelet Volume 10.4 fL 10.3 fL Neutrophils (%) (Auto) 73.3 % Lymphocytes (%) (Auto) 15.9 % Monocytes (%) (Auto) 9.7 % Eosinophils (%) (Auto) 0.9 % Basophils (%) (Auto) 0.1 % Neutrophils # (Auto) 6.42 K/uL Lymphocytes # (Auto) 1.39 K/uL Monocytes # (Auto) 0.85 K/uL Eosinophils # (Auto) 0.08 K/uL Basophils # (Auto) 0.01 K/uL RDW Standard Deviation 42.8 fL 43.7 fL RDW Coefficient of Variation 13.1 % 13.3 % Immature Granulocyte % (Auto) 0.1 % Immature Granulocyte # (Auto) 0.01 K/uL Prothrombin Time 10.7 SECONDS Prothromb Time International Ratio 1.0 Activated Partial Thromboplast Time 27.3 SECONDS Partial Thromboplastin Ratio 1.1 Urine Color YELLOW Urine Appearance CLEAR Urine pH 8.5 Urine Specific [place] 1.007 Urine Protein NEG Urine Glucose (UA) NEG Urine Ketones NEG Urine Occult Blood NEG Urine Nitrite NEG Urine Bilirubin NEG Urine Urobilinogen NEG Urine Leukocyte Esterase SMALL Urine WBC (Auto) 1-5 /hpf Urine RBC (Auto) 0-4 /hpf Urine Hyaline Casts (Auto) 0 /lpf Urine Epithelial Cells (Auto) 20-30 /lpf Urine Bacteria (Auto) NEG Sodium Level 142 mmol/L 141 mmol/L Potassium Level 3.7 mmol/L 3.8 mmol/L Chloride Level 113 mmol/L 110 mmol/L Carbon Dioxide Level 19 mmol/L 21 mmol/L Anion Gap 10.0 mmol/L 10.0 mmol/L Blood Urea Nitrogen 11 mg/dl 8 mg/dl Creatinine 0.62 mg/dl 0.72 mg/dl Est Creatinine Clear Calc Drug Dose 100.4 ml/min 84.4 ml/min Estimated GFR () 121.0 112.4 Estimated GFR (Non- 104.4 97.0 BUN/Creatinine Ratio 16.9 10.4 Random Glucose 99 mg/dl 88 mg/dl Calcium Level 8.5 mg/dl 8.5 mg/dl Total Bilirubin 0.4 mg/dl 0.6 mg/dl Direct Bilirubin < 0.1 mg/dl Aspartate Amino Transf (AST/SGOT) 16 U/L 14 U/L Alanine Aminotransferase (ALT/SGPT) 21 U/L 18 U/L Alkaline Phosphatase 59 U/L 53 U/L Total Protein 6.7 gm/dl 6.2 gm/dl Albumin 3.8 gm/dl 3.5 gm/dl Lipase 155 U/L 96 U/L Human Chorionic Gonadotropin, Qual NEG Troponin I < 0.015 ng/ml Globulin 2.7 gm/dl Albumin/Globulin Ratio 1.3 Impression Patient is a 50 year old female with acute on chronic abdominal pain. Her epigastric pain, use of NSAIDs and hx of prior gastric ulcer, this is very suspicious for peptic ulcer disease. Plan 1. EGD today. 2. Lorazepam once for anxiety/agitation. 3. Further recommendations to follow EDG. Attg addendum: I interviewed and examined pt, reviewed chart and labs. Pt with h/o chronic NSAID induced ulceration, remains on NSAIDs, not on PPI, now with worsening of chronic abd pain. On exam, she appears uncomfortable, and her abd is tender in epigastrium. CT reviewed. Suspect NSAID induced ulcer -- plan EGD.
[2016-06-24] MEDS ORDERED: FENTANYL CITRATE INJ 50 MCG/1 ML 2 ML VIAL ONE (12:12)
[2016-06-24] MEDS ORDERED: PROPOFOL IV EMULSION 10 MG/ML 20 ML VIAL IV ONE (12:20)
[2016-06-24] MEDS ORDERED: LIDOCAINE HCL 2% 2 ML VIAL (20MG/ML) ONE (12:20)
[2016-06-24] MEDS ORDERED: DEXAMETHASONE SOD INJ 4 MG/ML VIAL ONE (12:49)
[2016-06-24] MEDS ORDERED: ONDANSETRON INJ 2 MG/ML 2 ML VIAL ONE (12:49)
--- NOTE | 2016-06-24 12:57 | GI REPORT ---
Procedure Date: 06/24/2016 12:28 PM Procedure: Upper GI endoscopy Indications: Abdominal pain Medicines: See the Anesthesia note for documentation of the administered medications Complications: No immediate complications. Estimated Blood Loss: Estimated blood loss: none. Procedure: Pre-Anesthesia Assessment: - ASA Grade Assessment: III - A patient with severe systemic disease. After obtaining informed consent, the endoscope was passed under direct vision. Throughout the procedure, the patient's blood pressure, pulse, and oxygen saturations were monitored continuously. The scope was introduced through the mouth, and advanced to the second part of duodenum. The upper GI endoscopy was accomplished without difficulty. The patient tolerated the procedure well. Findings: The examined esophagus was normal. There was a cratered clean based ulcer in the antrum approximately 3 mm in largest diameter. There was deformity of the antrum, with a narrowing of the antrum at the area of the ulcer. There were multiple antral erosions. Ulcer edges were biopsied. The mucosa of the body, cardia, and fundus were normal, although there was a moderate amount of bile stained fluid in the stomach. Biopsies taken from throughout the stomach. The duodenum was normal. Impression: - Gastric ulcer and erosive antral gastritis. Recommendation: - Discharge patient to floor. - IV PPI therapy is not more effective than oral BID PPI for this indication. Would d/c IV PPI therapy, and begin twice daily PPI. - Pt has chronic ulcer disease likely related to chronic NSAID use; prior w/u for Helicobacter, sprue, gastrinoma has been negative. If NSAID avoidance is not possible, then would consider fdc therapy with MCFADDEN 2 + PPI or addtion of cytotec. Would recommend repeat EGD in 2 mos; if perisstent ulceration with PPI threapy, then will add cytotec at that time. - She may have some delay in gastric emptying related to ulcer disease. Would consider IV reglan 5 BID while she is an inpt. - Diet as tolerated. - We will arrange for f/u EGD. Will sign off, but please re-consult as needed. Jamar Hernandez M.D. Jamar Hernandez MD 06/24/2016 12:57:15 PM This report has been signed electronically. Note Initiated On: 06/24/2016 12:28 PM I attest to the content of the Intraoperative Record and orders documented therein, exceptions below
--- NOTE | 2016-06-24 13:04 | Anesthesiology Progress Note ---
Anesthesia Post Op Note Date & Time Jun 24, 2016 at 13:04 Vital Signs Pain Intensity: 4 Vital Signs Past 12 Hours Date Time Temp Pulse Resp B/P Pulse Ox O2 Delivery O2 Flow Rate FiO2 06/24/16 12:57 58 16 100/68 99 Nasal Cannula 3 06/24/16 12:45 69 16 101/63 95 Nasal Cannula 3 06/24/16 11:08 36.9 67 18 105/68 95 Room Air 06/24/16 08:00 Room Air 06/24/16 07:13 36.7 64 18 106/71 96 Room Air 06/24/16 06:51 Room Air 06/24/16 02:43 36.4 70 18 136/90 98 Room Air 06/24/16 01:52 61 16 109/61 93 Room Air 06/24/16 01:17 74 16 152/95 99 Room Air Notes Mental Status: alert / awake / arousable, participated in evaluation Pt Amnestic to Procedure: Yes Nausea / Vomiting: adequately controlled Pain: adequately controlled Airway Patency, RR, SpO2: stable & adequate BP & HR: stable & adequate Hydration State: stable & adequate Anesthetic Complications: no major complications apparent
[2016-06-24 13:43] VITALS: BP 113/75; PULSE 69; TEMP 36.3; O2SAT 95
[2016-06-24] MEDS ORDERED: HYDROmorphone INJ 1 MG/ML SYR IV ONE (14:09)
[2016-06-24 14:37] LABS: HEMATOCRIT 35.9 % (37-47)
[2016-06-24] MEDS: DiphenhydrAMINE HCL 50 MG/ML VIAL IV PRN ×2 (14:38→18:44)
[2016-06-24 15:09] VITALS: BP 121/70; PULSE 63; TEMP 36.4; O2SAT 92
[2016-06-24 18:10] LABS: HEMATOCRIT 35.5 % (37-47)
[2016-06-24 18:38] VITALS: BP 115/76
[2016-06-24 23:22] VITALS: BP 110/65; PULSE 71; TEMP 36.8; O2SAT 97
[2016-06-25] MEDS: HYDROmorphone INJ 1 MG/ML SYR IV PRN ×10 (00:12→23:45)
[2016-06-25] MEDS: PANTOprazole INJ 40 MG in DEXTROSE 5% 100ML IV SCH ×5 (01:40→21:46)
[2016-06-25] MEDS: MoRPHine SULFATE 4 MG/ML 1 ML CARP\\VIAL IV PRN (04:53)
[2016-06-25 07:35] VITALS: BP 131/75; PULSE 90; TEMP 36.5; O2SAT 99
[2016-06-25] MEDS: DiphenhydrAMINE HCL 50 MG/ML VIAL IV PRN ×3 (08:37→23:46)
[2016-06-25] MEDS: NSS + 20MEQ KCL 1000ML 1,000 ML IV SCH ×2 (08:37→19:14)
[2016-06-25 08:49] LABS: MEAN CELL VOLUME 90.2 fL (80-100); MEAN CORPUSCULAR HEMOGLOBIN 30.8 pg (25-34); MEAN CORPUSCULAR HGB CONC 34.1 g/dl (32-36); MEAN PLATELET VOLUME 10.6 fL (7.4-10.4); PLATELET COUNT 225 K/uL (130-400); RED BLOOD COUNT 3.77 M/uL (4.2-5.4); WHITE BLOOD COUNT 8.94 K/uL (4.8-10.8)
[2016-06-25 09:14] LABS: BUN/CREATININE RATIO 5.8 (10-20); CALCIUM 8.8 mg/dl (8.5-10.1); POTASSIUM 3.6 mmol/L (3.5-5.1)
[2016-06-25 09:16] LABS: ALB/GLOB RATIO 1.2 (0.9-2)
[2016-06-25] MEDS: FAMOTIDINE IV INJ 20 MG in DEXTROSE 5% 100ML 100 ML IV SCH ×2 (10:09→20:58)
[2016-06-25] MEDS: SUCRALFATE 1 GM/10 ML UDC PO SCH ×4 (10:09→21:08)
--- NOTE | 2016-06-25 11:26 | Hospitalist Progress Note ---
Hospitalist Progress Note Date of Service Jun 25, 2016. (Kaya Basilio ., HOMRE) Subjective Pt evaluation today including: conversation w/ patient, physical exam, chart review, lab review, review of studies, review of inpatient medication list Voiding: no voiding problems, no incontinence Patient states she is not feeling well. +significant epigastric pain, comes and goes. +insomnia. No BMs. Patient denies any fever, chills, sweats, lightheadedness, dizziness, vision changes, CP, palpitations, edema, SOB, wheezing, cough, nausea, vomiting, diarrhea, urinary symptoms, melena, numbness/ tingling, weakness, muscle/joint pain, anxiety/depression, active bleeding, or new skin discoloration/changes. (Kaya Basilio ., NAHEEDC) Medications Current Inpatient Medications Medications (Trade) Dose Ordered Sig/Argelia Route Start Time Stop Time Status Last Admin Dose Admin Ioversol 100 ml 100 ml UD PRN IV 06/23/16 22:15 06/27/16 22:14 Acetaminophen 100 ml @ 400 mls/hr Q8H PRN IV 06/24/16 00:15 07/24/16 00:14 06/24/16 00:43 400 MLS/HR Potassium Chloride/Sodium Chloride (Nss + 20meq KCl 1000ml) 1,000 ml @ 100 mls/hr Q10H IV 06/24/16 03:00 07/24/16 02:59 06/25/16 08:37 100 MLS/HR Morphine Sulfate (MoRPHine SULFATE INJ) 2 mg Q2H PRN IV 06/24/16 00:15 07/08/16 00:14 06/24/16 06:34 2 MG Morphine Sulfate 4 mg 4 mg Q2H PRN IV 06/24/16 00:15 07/08/16 00:14 06/25/16 04:53 4 MG Pantoprazole Sodium/Dextrose (Protonix Inj/D5 100ml) 100 ml @ 20 mls/hr Q5H IV 06/24/16 00:15 07/24/16 00:14 06/25/16 06:38 20 MLS/HR Ondansetron HCl (Zofran Inj) 4 mg Q6H PRN IV 06/24/16 00:30 07/24/16 00:29 06/24/16 23:12 4 MG Hydromorphone HCl (Dilaudid Inj) 0.5 mg Q2H PRN IV 06/24/16 01:15 07/08/16 01:14 06/24/16 05:12 0.5 MG Hydromorphone HCl (Dilaudid Inj) 1 mg Q2H PRN IV 06/24/16 01:15 07/08/16 01:14 06/25/16 08:39 1 MG Diphenhydramine HCl (Benadryl Inj) 50 mg Q4H PRN IV 06/24/16 01:15 07/24/16 01:14 06/25/16 08:37 50 MG Sucralfate 1 gm 1 gm QID PO 06/25/16 10:00 07/25/16 09:59 06/25/16 10:09 1 GM Famotidine/ Dextrose (Pepcid IV Inj/ D5 100ml) 102 ml @ 200 mls/hr Q12@0900,2100 IV 06/25/16 09:00 07/25/16 08:59 06/25/16 10:09 200 MLS/HR (Kaya Basilio ., PA-C) Objective Vital Signs Date Time Temp Pulse Resp B/P Pulse Ox O2 Delivery O2 Flow Rate FiO2 06/25/16 07:50 Room Air 06/25/16 07:35 36.5 90 16 131/75 99 Room Air 06/25/16 00:00 Room Air 06/24/16 23:22 36.8 71 20 110/65 97 Room Air 06/24/16 20:00 Room Air 06/24/16 18:38 115/76 06/24/16 15:47 Room Air 06/24/16 15:09 36.4 63 18 121/70 92 Room Air 06/24/16 13:43 36.3 69 20 113/75 95 Room Air 06/24/16 13:13 67 18 112/69 93 Room Air 06/24/16 12:57 58 16 100/68 99 Nasal Cannula 3 06/24/16 12:45 69 16 101/63 95 Nasal Cannula 3 (Kaya Basilio, PA-C) Physical Exam General Appearance: WD/WN, + mild distress Eyes: normal inspection, PERRL ENT: hearing grossly normal Neck: supple Respiratory/Chest: lungs clear, no respiratory distress, no accessory muscle use Cardiovascular: regular rate, rhythm Abdomen: normal bowel sounds, soft, + tenderness (severe epigastric tenderness to light palpation) Extremities: no pedal edema, no calf tenderness Neurologic/Psychiatric: alert, normal mood/affect, oriented x 3 Skin: normal color, warm/dry, no rash (Kaya Basilio ., PA-C) Laboratory Results Last 24 Hours Test 06/24/16 14:09 06/24/16 18:00 06/25/16 08:30 Hemoglobin 12.3 g/dL 12.2 g/dL 11.6 g/dL Hematocrit 35.9 % 35.5 % 34.0 % White Blood Count 8.94 K/uL Red Blood Count 3.77 M/uL Mean Corpuscular Volume 90.2 fL Mean Corpuscular Hemoglobin 30.8 pg Mean Corpuscular Hemoglobin Concent 34.1 g/dl RDW Standard Deviation 43.3 fL RDW Coefficient of Variation 13.2 % Platelet Count 225 K/uL Mean Platelet Volume 10.6 fL Sodium Level 142 mmol/L Potassium Level 3.6 mmol/L Chloride Level 111 mmol/L Carbon Dioxide Level 19 mmol/L Anion Gap 12.0 mmol/L Blood Urea Nitrogen 6 mg/dl Creatinine 1.00 mg/dl Est Creatinine Clear Calc Drug Dose 60.8 ml/min Estimated GFR () 75.5 Estimated GFR (Non- 65.2 BUN/Creatinine Ratio 5.8 Random Glucose 125 mg/dl Calcium Level 8.8 mg/dl Total Bilirubin 0.4 mg/dl Aspartate Amino Transf (AST/SGOT) 16 U/L Alanine Aminotransferase (ALT/SGPT) 20 U/L Alkaline Phosphatase 54 U/L Total Protein 6.5 gm/dl Albumin 3.6 gm/dl Globulin 2.9 gm/dl Albumin/Globulin Ratio 1.2 (Kaya Basilio ., PA-C) Assessment and Plan This is a 50 yo f that is presenting to us with acute epigastric pain and n&V, with hx of PUD- concerning for a recurrent ulcer because of no PPI x6 months and chronic NSAID use. Epigastric pain due gastric ulcer: - Admit med/surg - NPO, advance diet as tolerated - Hydrate with IV NSS + 20 mEq KCL @ 100 ml/hr - IV Protonix--> convert to Protonix BID PO when tolerating or intake - IV Pepcid + Carafate QID - Pain management with IV Dilaudid PRN or IV Morphine PRN - CXR- No active disease in the chest - Abdominal CT- No evidence of bowel obstruction. No evidence of free air. Nonspecific gastric antral wall thickening. Normal appendix. No evidence of acute diverticulitis - Check hem occult - U/A negative - Follow CBC and CMP- hgb stable - Consult GI, appreciate recommendations -- EGD on 06/24- gastric ulcer, erosive antral gastritis -- Recommend Protonix BID, f/u EGD in 2 months, avoid NSAIDs Chronic lower back pain secondary to arthritis - K Pad + IV Dilaudid PRN or IV Morphine PRN - Hold Ibuprofen Insomnia: - Patient usually takes Tylenol PM PO HS DVT prophylaxis: - No chemical therapy due to PUD - SCDs Code Status: LEVEL I, FULL Dispo: - Discharge to home once medically stable. (Kaya Basilio ., PA-C) i personally examined pt and verified all rojas points w Leroy Basilio PAC feeling better but still pretty bad overall - still hasn't eaten real food, still a lot of off and on epigastric pain back pain ongoing as well jennifer noted, abdomen epigastric tender w localized voluntary guarding but no involuntary no appearance of rebound NSAID induced PUD - stopped motrin, on protonix. due to pain - escalated and added pepcid as well, carafate; will also add maalox/lidocaine qid prn, needs to be showing better pain control and ability to take PO to be safe to go home back pain - likely muscular w off and on L4 radic as well. see 06/24 note (Clayton Brunson D.Sean.)
[2016-06-25 12:49] LABS: HEMATOCRIT 33.4 % (37-47)
[2016-06-25] MEDS ORDERED: ALUMINUM/MAGNESIUM SUSP 30 ML UDC PO STA (14:34)
[2016-06-25] MEDS ORDERED: ALUMINUM/MAGNESIUM SUSP 30 ML UDC PO PRN (14:45)
[2016-06-25] MEDS ORDERED: LIDOCAINE HCL 2% VISC SOLN 20 ML UDC PO PRN (14:45)
[2016-06-25] MEDS ORDERED: DOCUSATE SODIUM 100 MG CAP PO ONE (14:45)
[2016-06-25] MEDS ORDERED: LIDOCAINE HCL 2% VISC SOLN 20 ML UDC PO ONE (14:45)
[2016-06-25 15:06] VITALS: BP 125/87; PULSE 66; TEMP 36.4; O2SAT 96
[2016-06-25 16:00] VITALS: O2SAT 96
[2016-06-25 16:50] LABS: HEMATOCRIT 34.2 % (37-47)
[2016-06-25 20:59] LABS: HEMATOCRIT 34.3 % (37-47)
[2016-06-25] MEDS: DOCUSATE SODIUM 100 MG CAP PO SCH (21:08)
[2016-06-25] MEDS ORDERED: LORAZEPAM 0.5 MG TAB PO PRN (22:00)
[2016-06-25 23:47] VITALS: BP 119/80; PULSE 71; TEMP 36.5; O2SAT 93
[2016-06-26] MEDS: HYDROmorphone INJ 1 MG/ML SYR IV PRN ×7 (02:21→19:47)
[2016-06-26] MEDS: PANTOprazole INJ 40 MG in DEXTROSE 5% 100ML IV SCH ×5 (02:29→22:05)
[2016-06-26] MEDS: DiphenhydrAMINE HCL 50 MG/ML VIAL IV PRN ×4 (04:42→19:45)
[2016-06-26] MEDS: NSS + 20MEQ KCL 1000ML 1,000 ML IV SCH ×2 (04:44→15:53)
[2016-06-26 07:25] LABS: HEMATOCRIT 33.2 % (37-47); MEAN CELL VOLUME 91.7 fL (80-100); MEAN CORPUSCULAR HEMOGLOBIN 31.2 pg (25-34); MEAN PLATELET VOLUME 10.2 fL (7.4-10.4); PLATELET COUNT 218 K/uL (130-400); RED BLOOD COUNT 3.62 M/uL (4.2-5.4); WHITE BLOOD COUNT 5.12 K/uL (4.8-10.8)
[2016-06-26] MEDS: SUCRALFATE 1 GM/10 ML UDC PO SCH ×4 (07:51→21:12)
[2016-06-26] MEDS: DOCUSATE SODIUM 100 MG CAP PO SCH ×2 (07:51→21:12)
[2016-06-26 07:56] VITALS: BP 138/90; PULSE 63; TEMP 36.5; O2SAT 96
[2016-06-26 07:58] LABS: BUN/CREATININE RATIO 7.5 (10-20); CALCIUM 8.5 mg/dl (8.5-10.1); CREATININE 0.82 mg/dl (0.60-1.20)
[2016-06-26 08:00] VITALS: O2SAT 96
[2016-06-26 08:01] LABS: ALB/GLOB RATIO 1.4 (0.9-2)
[2016-06-26] MEDS: FAMOTIDINE IV INJ 20 MG in DEXTROSE 5% 100ML 100 ML IV SCH ×2 (08:48→21:13)
[2016-06-26] MEDS ORDERED: HYOSCYAMINE SULFATE 0.375 MG TABCR PO ONE (09:38)
[2016-06-26 09:43] VITALS: O2SAT 96
[2016-06-26] MEDS: HYOSCYAMINE SULFATE 0.375 MG TABCR PO SCH ×2 (12:48→21:13)
[2016-06-26] MEDS: POLYETHYLENE (MIRALAX) 17 GM PACK PO PRN (12:57)
[2016-06-26 15:43] VITALS: BP 122/80; PULSE 72; TEMP 36.6; O2SAT 97
--- NOTE | 2016-06-26 16:36 | Progress Note ---
Subjective Date of Service: Jun 26, 2016. Subjective Pt evaluation today including: conversation w/ patient, physical exam, chart review, lab review, review of inpatient medication list still having a good deal of pain off and on epigastric no vomiting couldn't really eat though notes back pain ongoing as well extensive discussions about PUD, NSAIDs, back pain, other treatment regimens to help back Problem List Medical Problems: (1) Hx of ulcer disease Status: Chronic (2) PUD (peptic ulcer disease) Status: Chronic (3) Stomach ulcer Status: Chronic Review of Systems Abdomen: + nausea, + pain, + see HPI ros otherwise negative except for as above Objective Vital Signs Date Time Temp Pulse Resp B/P Pulse Ox O2 Delivery O2 Flow Rate FiO2 06/26/16 15:43 36.6 72 23 122/80 97 Room Air 06/26/16 09:43 96 Room Air 06/26/16 08:00 96 Room Air 06/26/16 07:56 36.5 63 20 138/90 96 Room Air 06/26/16 00:00 Room Air 06/25/16 23:47 36.5 71 20 119/80 93 Room Air Physical Exam General Appearance: + pertinent finding (comfortable at times, waves of pain holding stomach at times) ENT: hearing grossly normal Neck: trachea midline Respiratory/Chest: no respiratory distress, no accessory muscle use Abdomen: soft, + tenderness (epigastric without rigidity. 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 mid thoracic L>R paraspinals high tone/tender/decreased ROM - inhibitory pressure/direct myofascial - improved some, pt tolerated well Laboratory Results Last 24 Hours Test 06/25/16 20:40 06/26/16 07:04 Hemoglobin 11.7 g/dL 11.3 g/dL Hematocrit 34.3 % 33.2 % White Blood Count 5.12 K/uL Red Blood Count 3.62 M/uL Mean Corpuscular Volume 91.7 fL Mean Corpuscular Hemoglobin 31.2 pg Mean Corpuscular Hemoglobin Concent 34.0 g/dl RDW Standard Deviation 44.6 fL RDW Coefficient of Variation 13.4 % Platelet Count 218 K/uL Mean Platelet Volume 10.2 fL Sodium Level 144 mmol/L Potassium Level 4.0 mmol/L Chloride Level 108 mmol/L Carbon Dioxide Level 27 mmol/L Anion Gap 9.0 mmol/L Blood Urea Nitrogen 6 mg/dl Creatinine 0.82 mg/dl Est Creatinine Clear Calc Drug Dose 74.1 ml/min Estimated GFR () 96.0 Estimated GFR (Non- 82.9 BUN/Creatinine Ratio 7.5 Random Glucose 84 mg/dl Calcium Level 8.5 mg/dl Total Bilirubin 0.4 mg/dl Aspartate Amino Transf (AST/SGOT) 16 U/L Alanine Aminotransferase (ALT/SGPT) 23 U/L Alkaline Phosphatase 47 U/L Total Protein 6.0 gm/dl Albumin 3.5 gm/dl Globulin 2.5 gm/dl Albumin/Globulin Ratio 1.4 Assessment and Plan Epigastric pain due gastric ulcer: - actually pathology even just suggests gastritis - still having significant pain - seems to come w waves of peristalsis - protonix, pepcid, levsin, maalox, lidocaine, OMT to thoracics to try to normalize sympathetic tone to gut Chronic lower back pain secondary to arthritis - K Pad + IV Dilaudid PRN or IV Morphine PRN - Hold Ibuprofen - examines very biomechanical - for outpt manipulative medicine Insomnia: - Patient usually takes Tylenol PM PO HS DVT prophylaxis: - No chemical therapy due to PUD - SCDs Code Status: LEVEL I, FULL Dispo: - Discharge to home once medically stable
[2016-06-26] MEDS: MoRPHine SULFATE 2 MG/ML CARP IV PRN ×2 (17:44→21:13)
[2016-06-26] MEDS ORDERED: LORAZEPAM 1 MG TAB PO PRN (21:00)
[2016-06-27 00:18] VITALS: BP 127/83; PULSE 64; TEMP 36.9; O2SAT 95
[2016-06-27] MEDS: NSS + 20MEQ KCL 1000ML 1,000 ML IV SCH ×2 (01:08→10:01)
[2016-06-27] MEDS: DiphenhydrAMINE HCL 50 MG/ML VIAL IV PRN (02:03)
[2016-06-27] MEDS: HYDROmorphone INJ 1 MG/ML SYR IV PRN ×8 (02:03→23:39)
[2016-06-27] MEDS: PANTOprazole INJ 40 MG in DEXTROSE 5% 100ML IV SCH ×2 (03:30→07:53)
[2016-06-27] MEDS: ONDANSETRON INJ 2 MG/ML 2 ML VIAL IV PRN (06:39)
[2016-06-27 06:42] LABS: MEAN CELL VOLUME 91.2 fL (80-100); MEAN CORPUSCULAR HEMOGLOBIN 30.3 pg (25-34); MEAN CORPUSCULAR HGB CONC 33.2 g/dl (32-36); MEAN PLATELET VOLUME 10.5 fL (7.4-10.4); PLATELET COUNT 221 K/uL (130-400); RED BLOOD COUNT 3.73 M/uL (4.2-5.4); WHITE BLOOD COUNT 4.47 K/uL (4.8-10.8)
[2016-06-27 07:47] VITALS: BP_SYST 147; BP_SYST 156; BP_DIAS 89; BP_DIAS 95; PULSE 61; TEMP 36.6; O2SAT 98
[2016-06-27] MEDS: DOCUSATE SODIUM 100 MG CAP PO SCH ×2 (07:53→21:42)
[2016-06-27] MEDS: HYOSCYAMINE SULFATE 0.375 MG TABCR PO SCH ×3 (07:53→21:41)
[2016-06-27] MEDS: FAMOTIDINE IV INJ 20 MG in DEXTROSE 5% 100ML 100 ML IV SCH (07:53)
[2016-06-27] MEDS: SUCRALFATE 1 GM/10 ML UDC PO SCH ×4 (07:53→21:42)
[2016-06-27] MEDS ORDERED: POLYETHYLENE (MIRALAX) 17 GM PACK PO PRN (12:15)
[2016-06-27] MEDS ORDERED: POLYETHYLENE (MIRALAX) 17 GM PACK PO ONE (12:30)
[2016-06-27] MEDS: OXYCODONE/ACETAMINOPHEN 5-325 TAB PO PRN (13:25)
[2016-06-27 15:30] VITALS: BP 146/92; PULSE 69; TEMP 36.6; O2SAT 98
[2016-06-27] MEDS: POLYETHYLENE (MIRALAX) 17 GM PACK PO PRN (17:18)
--- NOTE | 2016-06-27 18:11 | Progress Note ---
Subjective Date of Service: Jun 27, 2016. Subjective Pt evaluation today including: conversation w/ patient, conversation w/ family , physical exam, chart review, lab review, review of inpatient medication list pain still hits intensely and severely - but time intervals seem to be spacing some, and times in between waves of pain are better still hurts a ton after eating - only ate ~25%. separately notes not sleeping well - not just here, but in general - part maybe from pain, but mostly from not being able to shut down thoughts. wakes up all the time through the night - knows that's gotta be getting in the way of her being able to be doing as well as she could be w stomach, back, etc. has tried writing down thoughts before bed, but doesn't do so regularly, hasn't noticed much help. does pray about it but relates she has a hard time really giving over to God about the stressors. relates even "a lot of the time it's stupid little things, but i just can't shut down" Problem List Medical Problems: (1) Hx of ulcer disease Status: Chronic (2) PUD (peptic ulcer disease) Status: Chronic (3) Stomach ulcer Status: Chronic Review of Systems ros otherwise negative except for as above Objective Vital Signs Date Time Temp Pulse Resp B/P Pulse Ox O2 Delivery O2 Flow Rate FiO2 06/27/16 15:30 36.6 69 20 146/92 98 Room Air 06/27/16 15:30 Room Air 06/27/16 08:00 Room Air 06/27/16 07:47 36.6 61 20 156/95 98 Room Air 147/89 06/27/16 00:18 36.9 64 20 127/83 95 Room Air 06/27/16 00:10 Room Air 06/26/16 20:10 Room Air Physical Exam General Appearance: no apparent distress Eyes: EOMI ENT: hearing grossly normal Neck: trachea midline Respiratory/Chest: no respiratory distress, no accessory muscle use Extremities: normal range of motion Neurologic/Psychiatric: filling carrier II-XII nml as tested, alert, normal mood/affect ( pressured speech at times) Skin: normal color, warm/dry Laboratory Results Last 24 Hours Test 06/27/16 06:26 White Blood Count 4.47 K/uL Red Blood Count 3.73 M/uL Hemoglobin 11.3 g/dL Hematocrit 34.0 % Mean Corpuscular Volume 91.2 fL Mean Corpuscular Hemoglobin 30.3 pg Mean Corpuscular Hemoglobin Concent 33.2 g/dl RDW Standard Deviation 44.5 fL RDW Coefficient of Variation 13.3 % Platelet Count 221 K/uL Mean Platelet Volume 10.5 fL Assessment and Plan Epigastric pain due gastric ulcer: - actually pathology even just suggests gastritis - still having significant pain - seems to come w waves of peristalsis - protonix, pepcid, levsin, maalox, lidocaine - stopped IVF, changed all meds to PO. percocet as first line for pain Chronic lower back pain secondary to arthritis - Hold Ibuprofen obviously - examines very biomechanical - for outpt manipulative medicine, light cardiovascular exercise (recumbent bike), etc - discussed extensively Insomnia/anxiety - extensive and lengthy d/w pt, , and friend - discussed stress management techniques, discussed role of exercise in stress management, discussed lesser and secondary role of medications - but then given difficulties of current situation also discussed possible meds - and due to hopeful benefit on not only sleep but chronic pain - give trial of amitriptylline. risks/benefits/side effects discussed. if fails this due to side effects, could then give trial to trazodone as likely less side effect potential but also no real potential for pain modulation DVT prophylaxis: - No chemical therapy due to PUD - SCDs Code Status: LEVEL I, FULL Dispo: - Discharge to home once pain better controlled ~45mins face to face
--- NOTE | 2016-06-27 18:16 | Discharge Instructions ---
Discharge Instructions Admission Reason for Admission: Hx Of Ulcer Disease, Intractable Abd Pain Discharge Discharge Diagnosis / Problem: peptic ulcer disease Discharge Goals Goal(s): Diagnostic testing, Therapeutic intervention Activity Recommendations Activity Limitations: resume your previous activity . Instructions / Follow-Up Instructions / Follow-Up peptic ulcer disease: chronic back pain -appears to be mostly musculoligamentous (ie the tight muscles and tight ligaments are a big part of what's making you hurt every day). the bone and disc disease plays a role - but mostly the disc disease is going to be showing up when the pain is radiating down your legs; the bone disease mostly isn't going to be causing that much pain itself, but can be part of the reason why the muscles get irritated and tight -usually pain meds/muscle relaxers don't help a ton with this kind of pain. usually getting the muscles to settle down does. -manipulative medicine (locally i'd have you talk to Dr Warren of [facility], or Faustino Bruno in [place]) can usually have a big benefit - as we discussed, though, there's a lot of muscle "retraining" that needs to be done, and so often it takes a few months till you really start to feel a difference -light (low or no impact) cardiovascular exercise can help a good deal too - because getting better blood flow to muscles will help them to relax. as we discussed there, pedalling on a recumbent exercise bike can be really helpful as it can get heart rate up, blood flow going, but not really have much impact on your back insomnia -give trial to the amitriptyline for a few weeks - side effects commonly would be dry mouth, lightheadedness, or feeling groggy. but if it helps, and the side effects don't happen, it can then not only help you sleep, but hopefully can help modulate how your brain perceives the pain (best studied in diabetics with chronic nerve pain, but should be helpful in your situation as well) Current Hospital Diet Patient's current hospital diet: Regular Diet Discharge Diet Recommended Diet: Regular Diet Procedures Procedures Performed: EGD, BX Pending Studies Studies pending at discharge: no Medical Emergencies . Who to Call and When: Medical Emergencies: If at any time you feel your situation is an emergency, please call 911 immediately. . Non-Emergent Contact Non-Emergency issues call your: Primary Care Provider . . "Provider Documentation" section prepared by Clayton Brunson. VTE Core Measure Inpt VTE Proph given/why not?: SCD's
[2016-06-27] MEDS ORDERED: AMITRIPTYLINE HCL 50 MG TAB PO SCH (21:00)
[2016-06-27] MEDS: PANTOprazole SOD 40 MG TAB PO SCH (21:41)
[2016-06-27] MEDS: FAMOTIDINE 20 MG TAB PO SCH (21:42)
[2016-06-27 23:02] VITALS: BP 125/74; PULSE 70; TEMP 36.8; O2SAT 93
[2016-06-28] MEDS: OXYCODONE/ACETAMINOPHEN 5-325 TAB PO PRN ×2 (00:29→09:34)
[2016-06-28] MEDS: HYDROmorphone INJ 1 MG/ML SYR IV PRN (06:03)
[2016-06-28 07:29] VITALS: BP 126/84; PULSE 66; TEMP 36.5; O2SAT 96
[2016-06-28] MEDS: SUCRALFATE 1 GM/10 ML UDC PO SCH ×2 (07:33→13:25)
[2016-06-28] MEDS: DOCUSATE SODIUM 100 MG CAP PO SCH (07:33)
[2016-06-28] MEDS: FAMOTIDINE 20 MG TAB PO SCH (07:33)
[2016-06-28] MEDS: POLYETHYLENE (MIRALAX) 17 GM PACK PO PRN (07:33)
[2016-06-28] MEDS: PANTOprazole SOD 40 MG TAB PO SCH (07:33)
[2016-06-28] MEDS: HYOSCYAMINE SULFATE 0.375 MG TABCR PO SCH (07:33)
[2016-06-28 07:35] VITALS: BP 126/88; PULSE 60; TEMP 36.9; O2SAT 97
[2016-06-28] MEDS ORDERED: METHYLNALTREXONE BROMIDE INJ 12 MG/0.6 ML SYR SQ SCH (08:35)
[2016-06-28] MEDS ORDERED: NURSING VERBAL MED ORDER ONE (08:45)
[2016-06-28] MEDS ORDERED: SOD PHOSPHATE/SOD BIPHOSPHATE ENEMA 132 ML BTL PR ONE (09:00)
[2016-06-28 10:32] VITALS: O2SAT 97
[2016-06-28] MEDS ORDERED: FAMO20TA12 PO (11:13)
[2016-06-28] MEDS ORDERED: HYDR-4313 PO (11:13)
[2016-06-28] MEDS ORDERED: CRFUDL PO (11:13)
[2016-06-28] MEDS ORDERED: MRLP17X PO (11:13)
[2016-06-28] MEDS ORDERED: TRAM-453 PO (11:13)
[2016-06-28] MEDS ORDERED: SENN-65 PO (11:13)
[2016-06-28] MEDS ORDERED: PRT40 PO (11:13)
--- NOTE | 2016-06-28 11:25 | Discharge Summary ---
Discharge Summary Admission Date: Jun 24, 2016 at 02:19 Discharge Date: Jun 28, 2016 Discharge Disposition: Home Problems/Secondary Diagnoses: (1) Hx of ulcer disease Status: Chronic (2) PUD (peptic ulcer disease) Status: Chronic (3) Stomach ulcer Status: Chronic Immunizations: Have You Had Influenza Vaccine: Yes History of Tetanus Vaccine?: Yes Tetanus Immunization Date: May 14, 2012 History of Pneumococcal: No Pneumococcal Date: Jul 15, 2007 History of Hepatitis B Vaccine: Yes Hepatitis Immunization Date: Jan 13, 2006 Procedures: S/P EGD DICTATED BY: Jamar Hernandez M.D. Procedure Date: 06/24/2016 12:28 PM Procedure: Upper GI endoscopy Indications: Abdominal pain Medicines: See the Anesthesia note for documentation of the administered medications Complications: No immediate complications. Estimated Blood Loss: Estimated blood loss: none. Procedure: Pre-Anesthesia Assessment: - ASA Grade Assessment: III - A patient with severe systemic disease. After obtaining informed consent, the endoscope was passed under direct vision. Throughout the procedure, the patient's blood pressure, pulse, and oxygen saturations were monitored continuously. The scope was introduced through the mouth, and advanced to the second part of duodenum. The upper GI endoscopy was accomplished without difficulty. The patient tolerated the procedure well. Findings: The examined esophagus was normal. There was a cratered clean based ulcer in the antrum approximately 3 mm in largest diameter. There was deformity of the antrum, with a narrowing of the antrum at the area of the ulcer. There were multiple antral erosions. Ulcer edges were biopsied. The mucosa of the body, cardia, and fundus were normal, although there was a moderate amount of bile stained fluid in the stomach. Biopsies taken from throughout the stomach. The duodenum was normal. Impression: - Gastric ulcer and erosive antral gastritis. Recommendation: - Discharge patient to floor. - IV PPI therapy is not more effective than oral BID PPI for this indication. Would d/c IV PPI therapy, and begin twice daily PPI. - Pt has chronic ulcer disease likely related to chronic NSAID use; prior w/u for Helicobacter, sprue, gastrinoma has been negative. 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 Would recommend repeat EGD in 2 mos; if perisstent ulceration with PPI threapy, then will add cytotec at that time. - She may have some delay in gastric emptying related to ulcer disease. Would consider IV reglan 5 BID while she is an inpt. - Diet as tolerated. - We will arrange for f/u EGD. Will sign off, but please re-consult as needed. Jamar Hernandez M.D. Jamar Hernandez MD 06/24/2016 12:57:15 PM This report has been signed electronically. Note Initiated On: 06/24/2016 12:28 PM I attest to the content of the Intraoperative Record and orders documented therein, exceptions below Dictated: 06/24/16 1228 Signed: 06/24/16 1256 The status of this report is Signed. Draft = Not yet reviewed or approved by Medical Physician. Signed = Reviewed and approved by Medical Physician. <ConsultingPhyMNE>f pt consult dr anderson</ConsultingPhyMNE> <FamilyPhyMNE>f pt fam dr anderson</FamilyPhyMNE> <OtherPhyMNE>f pt other dr anderson</OtherPhyMNE> < PrimaryPhyMNE>f pt prim care dr anderson</PrimaryPhyMNE> <ReferringPhyMNE>f pt referring dr anderson</ReferringPhyMNE> Consultations: Dr. Marin from GI service Medication Reconciliation New Medications: Senna/Docusate Sod (Senokot S) 1 Tab Tab 1 TAB PO BID for 30 Days, #60 TAB Tramadol Hcl (Ultram) 50 Mg Tab 50 MG PO Q8H for 30 Days, #60 TAB PRN PAIN Famotidine (Famotidine) 20 Mg Tab 20 MG PO BID for 14 Days, #28 TAB Pantoprazole (Pantoprazole Sodium) 40 Mg Tab 40 MG PO qhs for 30 Days, #30 TAB Polyethylene (Miralax) 17 Gm Pow 17 GM PO QID PRN for constipation for 30 Days, #30 PKT Sucralfate (Sucralfate) 1 Gm/10 Ml Susp 1 GM PO QID for 30 Days, #1200 ML 1 Refill Continued Medications: Acetaminophen/Diphenhydramine (Tylenol Pm) 500 Mg/25 Mg Tab 1 TAB PO HS, TAB Acetaminophen/Hydrocodone (Hydrocodone/Acetaminophen 5-325 mg) 1 Ea Tab 1 TAB PO BID PRN for Pain, #20 TAB (This prescription has been renewed) Discontinued Medications: Ibuprofen Tab (Advil) 200 Mg Tab 600 MG PO BID PRN for Pain, TAB Referrals At Discharge Follow up Referrals: [employer] Preparer Referral - Within 1-2 Weeks with Jamar Hernandez M.D. Discharge Exam Review of Systems: Constitutional: No chills, No fatigue, No fever, No problem reported, No sweats, No weakness, No weight loss Eyes: No diplopia, No discharge, No eye pain, No problem reported, No redness, No worsening of vision ENT: No dental problems, No hearing loss, No nasal symptoms, No problem reported, No sore throat, No tinnitus, No trouble swallowing, No unusual epistaxis Respiratory: No cough, No dyspnea at rest, No dyspnea on exertion, No hemoptysis, No problem reported, No shortness of breath, No sputum, No wheezing Cardiovascular: No PND, No chest pain, No claudication, No edema, No orthopnea, No palpitations, No problem reported Abdomen: + nausea, + pain, No vomiting Musculoskeletal: + muscle pain (back pain), No calf pain, No joint pain, No problem reported, No swelling Genitourinary - Female: No dysmenorrhea, No dysuria, No hematuria, No menorrhagia, No metrorrhagia, No , No problem reported, No rash, No urinary frequency, No urinary incontinence, No urinary retention, No urinary urgency, No vaginal bleeding, No vaginal discharge, No vaginal itching, No vulvodynia Neurologic: No balance problems, No memory loss, No numbness/tingling, No paralysis, No problem reported, No vertigo, No weakness Psychiatric: No anhedonism, No anxiety, No depression symptoms, No insomnia , No problem reported, No substance abuse Hematologic / Lymphatic: No abnormal bleeding/bruising, No clotting problems , No night sweats, No problem reported, No swollen lymph nodes Integumentary: No bleeding, No color change, No itch, No new/changing skin lesions, No problem reported, No rash Hospital Course 50 years old female with Hx of lower back pain on NSAID as an out patient , was admitted to severe abdominal pain. GI consult was appreciated. she had an EGD on 06/24/2016, report is attached above she was found to have 3mm ulcer in the antrum and multiple erosions, duodenum was normal. she was started on PPI / Pepcid / Carafate slowly improved and was found today within acceptable medical state for discharge. she was instructed to avoid NSAID started on ultram, percocet for back pain she will follow up with GI in 1-2 weeks for her Insomnia/anxiety she will try stress management techniques / exercise in stress management, No coffe/tea after 2 pm No nap after 1 pm if that failed then she will be started on medication as an OP she was given a letter to rest at home for 4 days This includes examination of the patient, discharge planning, medication reconciliation, and communication with other providers. Discharge Instructions Please refer to the electronic Patient Visit Report (Discharge Instructions) for additional information.
[2016-06-28 11:31] VITALS: BP 126/88; PULSE 60; TEMP 36.9; O2SAT 97
[2016-06-28] MEDS ORDERED: PANT40TA PO (11:48)
[2016-06-28] MEDS ORDERED: FAMO20TA11 PO (11:48)
[2016-06-28] MEDS ORDERED: AMT/50 OR (12:54)
[2016-06-28] MEDS ORDERED: OXYC-57 PO (12:54)
== END 2016-06-28 13:26 | disposition home or self-care (01) | DRG 384 ==
LOC: ENRESERVDT → ENRESERVTM → C.EDB 19:22 → C.MED 06-24 02:19
PROVIDERS: ADMIT Hospitalist; ATTEND Family Medicine
PROC: 0DB68ZX Excision of Stomach, Via Natural or Artificial Opening Endoscopic, Diagnostic (ICD-10-PCS; principal; 2016-06-24 11:03)
DX: K25.9 Gastric ulcer, unspecified as acute or chronic, without hemorrhage or perforation (principal); G89.29 Other chronic pain; K29.60 Other gastritis without bleeding; D64.9 Anemia, unspecified; M19.90 Unspecified osteoarthritis, unspecified site; F41.9 Anxiety disorder, unspecified; R10.13 Epigastric pain; T39.315A Adverse effect of propionic acid derivatives, initial encounter; K21.9 Gastro-esophageal reflux disease without esophagitis; G47.00 Insomnia, unspecified; M54.16 Radiculopathy, lumbar region; R11.2 Nausea with vomiting, unspecified; I10 Essential (primary) hypertension; Z79.1 Long term (current) use of non-steroidal anti-inflammatories (NSAID); Z79.899 Other long term (current) drug therapy; Z87.891 Personal history of nicotine dependence; Z79.891 Long term (current) use of opiate analgesic